=== PATIENT | male | born 1995 | race Caucasian/White ===

== ENCOUNTER 2018-03-14 09:58 | Day surgery (SDC) | payer OTHER ==
[2018-03-14] MEDS ORDERED: BUPIVACAINE 0.25% PF 30 ML VIAL ONE (10:53)
[2018-03-14] MEDS ORDERED: LACTATED RINGERS 1,000 ML IV ONE ×3 (10:54→14:09)
--- NOTE | 2018-03-14 11:10 | ANESTHESIA ---
Pre-Anesthesia VS, & Labs - Diagnosis Left wrist distal radius fracture - Procedure ORIF Left wrist distal radius fracture Vital Signs: Temp Pulse Resp BP Pulse Ox 37.2 C 70 16 126/77 99 03/14/18 10:38 03/14/18 10:38 03/14/18 10:38 03/14/18 10:38 03/14/18 10:38 Height 6 ft 3 in Weight (kg) 74.84 kg - NPO Last Fluid Intake: Water at 0900 Home Medications and Allergies Home Medications: Ambulatory Orders No Known Home Medications 03/12/18 No Known Home Medications 03/12/18 Allergies/Adverse Reactions: Allergies Allergy/AdvReac Type Severity Reaction Status Date / Time No Known Drug Allergies Allergy Verified 03/12/18 13:30 Anes History & Medical History - Anesthetic History Family history of Anesthesia Complications: Denies Family history of Malignant Hyperthermia: Denies - Medical History Cardiovascular: reports: None Pulmonary: reports: None Gastrointestinal: reports: None Urinary: reports: None Neuro: reports: None Musculoskeletal: reports: Other Endocrine/Autoimmune: reports: None Blood Disorders: reports: None Skin: reports: None Smoking Status: Light tobacco smoker (Uses vape pen) Psychosocial: reports: No issues indicated Exam General: Alert, Oriented x3, Cooperative, No acute distress Dental: WNL Mouth Openin Fingerbreadth Neck Mobility: Normal Mallampati classification: I Thyromental Distance: 4-6 cm Respiratory: Lungs clear, Normal breath sounds, No respiratory distress, No accessory muscle use Cardiovascular: Regular rate, Normal S1, Normal S2, No murmurs Cognitive Status: Within normal limits Plan Anesthesia Type: General Consent for Procedure(s) Verified and Reviewed: Yes Code Status: Attempt Resuscitation ASA classification: 1-Healthy patient Is this case an emergency?: No
[2018-03-14] MEDS ORDERED: ceFAZolin 2 GM/50 ML 2 GM/50 ML BAG IV ONE (11:41)
[2018-03-14] MEDS ORDERED: BUPIVACAINE 0.25% PF 30 ML VIAL SUBQ ONE (14:28)
[2018-03-14] MEDS ORDERED: fentaNYL 250 MCG/5 ML VIAL IVP ONE (16:08)
[2018-03-14] MEDS ORDERED: ONDANSETRON 4 MG/2 ML VIAL IVP ONE (16:08)
[2018-03-14] MEDS ORDERED: MIDAZOLAM 2 MG/2 ML VIAL IVP ONE (16:08)
[2018-03-14] MEDS ORDERED: KETOROLAC 30 MG/ML VIAL IVP ONE (16:08)
[2018-03-14] MEDS ORDERED: PROPOFOL 200 MG/20 ML VIAL IVP ONE (16:08)
[2018-03-14] MEDS ORDERED: oxyCODONE 5 MG TABLET PO PRN (16:12)
[2018-03-14] MEDS ORDERED: ONDANSETRON 4 MG/2 ML VIAL IVP PRN (16:12)
[2018-03-14] MEDS ORDERED: HYDROmorphone 1 MG/ML CARPUJECT ONE (16:47)
--- NOTE | 2018-03-14 16:47 | OPERATIVE REPORT ---
Operative Report - General Procedure Date: 03/14/18 Planned Procedure: Left distal radius fracture open reduction internal fixation Pre-Op Diagnosis: Left distal radius fracture Procedure Performed: Left distal radius fracture open reduction internal fixation Post Op Diagnosis: Left distal radius fracture - Procedure Note Primary Surgeon: GUCCI CRUZ Secondary Surgeon: MAGDY CEDENO Anesthesia Technique: General LMA Estimated Blood Loss (mL): 30 - Other Other Information/Narrative: Tourniquet Time: 98 minutes at 250mmHg. Implants: Arthrex left standard distal radius volar locking plate Arthrex 2.4 mm cortex screws x2 Arthrex 2.4 mm locking screws x3 Arthrex 3.5 mm cortex screws x2 Arthrex 3.5 mm locking screw x1 Specimen(s) Information: None Complication(s): None Condition: Stable to recovery Indications for Surgery: The patient is a 22-year-old Right hand dominant Male Who sustained a closed left extra-articular distal radius fracture on 31 August 2018 while snowboarding at [facility]. He was initially seen in ED was placed in a splint and then evaluated by orthopedics. Review of the imaging showed a left distal radius fracture with significant dorsal comminution and excessive dorsal tilt. We a long discussion in the clinic about the management options of this fracture ranging from closed reduction and casting to open reduction internal fixation, and the risks and potential benefits of each course of action. After discussion the patient wished to proceed with surgery for open reduction internal fixation of his left distal radius fracture with a goal of earlier mobilization and decreased wrist stiffness. Risks of surgery were discussed to include bleeding, infection, postoperative wrist stiffness, damage to nerves, vessels, tendons, ligaments, anesthesia complications to include medication side effects and allergic reactions, blood clot, stroke, heart attack and even . After a discussion, they wished to proceed. Findings: Left distal radius fracture Descriptions of Procedure: The patient was met in the Preoperative Holding Area, at which time preoperative paperwork was confirmed. The Left Fingers and splint were signed. The patient was then brought to Main Operating Room, placed supine on the Operating Room table, at which time pre procedure timeout was conducted. After this general anesthesia was induced. The operative extremity was then prepped and draped over a hand table in the normal sterile fashion after a well-padded tourniquet was placed on the proximal arm. A final timeout was conducted to confirm the correct patient, correct extremity and correct procedure and to confirm that antibiotics had been administered within 30 minutes of incision time. The operative extremity was then exsanguinated with an Esmarch bandage and tourniquet inflated to 250mmHg. An approximately 8 cm incision overlying the FCR tendon was made on the volar wrist, at the proximal wrist crease the incision was carried slightly radially to avoid crossing the wrist crease directly. The sheath of the FCR tendon was incised, and the FCR was retracted ulnarly and the floor of the FCR sheath was then incised exposing the pronator quadratus and FPL tendon and muscle belly. The FPL tendon was retracted ulnarly and the radial soft tissues were retracted radially exposing the pronator quadratus. The pronator quadratus was sharply incised from its insertion on the radial side of the radius and distally along the watershed line, it was then elevated using a yuan elevator to form a muscular flap that was anchored ulnarly and proximally. Once this had been accomplished, the brachioradialis was partially released from its insertion on the radial styloid. The fracture edges were now visible and cleaned using a combination of sharp and blunt dissection, a Richwood elevator was introduced into the fracture site to lever the fragments apart. A reduction maneuver was then performed, and the reduction was verified on fluoroscopy, satisfied with the reduction and K wire was driven through the radial styloid into the ulnar diaphyseal cortex for provisional reduction. A standard-sized Arthrex left distal radius plate was then introduced of the wound and positioned under fluoroscopic guidance. Once we were satisfied with the position on the AP imaging, the oblong hole was drilled and filled with a Cortical screw. The position of the plate was then examined laterally and found to be too distal with projection beyond the watershed line. The screw was loosened and the plate was translated proximally however there was not enough distance in the oblong hole and so a second more proximal hole was drilled and the oblong screw was replaced. Position of the plate was confirmed on biplanar fluoroscopy, and once satisfied the screw in the oblong hole was then tightened. We then turned our attention to the distal holes and placed a distal ulnar-sided and distal radial sided cortex screw to draw the plate to the bone, the position of the screws was confirmed on fluoroscopy. Satisfied with our position we then placed locking screws in the remaining 2 distal row holes as well as in 1 of the radial styloid holes. 2 additional cortex screws were placed into the radial shaft, the distal most screw was found to not have good purchase and was switched to a slightly shorter locking screw for a fixed angle construct. Final radiographs including AP, lateral, and 20 degree lateral view were obtaine d confirming good plate and screw position. A dorsal Horizon view of the distal radius under live fluoroscopy was used to verify that there is no dorsal screw prominence.The wound was then irrigated, and the pronator quadratus was Tacked back in place over the plate using interrupted 2-0 Vicryl sutures. The tourniquet was then let down, pressure was held for 5 minutes, no pulsatile bleeding was observed, there was some skin oozing as well as expected oozing from the fracture site and the cut edges of the pronator quadratus. The wound was then irrigated again, and the skin was closed using interrupted 2-0 Vicryl for deep dermal closure, followed by 3-0 nylon interrupted horizontal mattress stitches for skin. 10 cc of 0.25% plain Marcaine were injected in the alber- incisional soft tissues. The wound was dressed with Xeroform 4 x 4 gauze and Webril, and then a dorsal and volar plaster splint was applied, leaving the elbow free. The plaster is covered with Webril followed by an Onofre wrap. The patient was then awakened from general anesthesia without complication, brought to the Post Anesthesia Care for further recovery. Postoperative Plan: 1. The patient will be discharged from the Same Day Surgery Unit when discharge criteria are met. 2. The patient will remain in a the splint until follow-up. They can begin gentle finger range of motion on postoperative day #1 or #2 as pain allows. 3. Expect to start wrist ROM 1-2 weeks post-op. No strengthening for at least 4- 6 weeks postop.
[2018-03-14 17:32] VITALS: BP 137/80
== END 2018-03-14 09:59 | disposition home or self-care (01) ==
LOC: SDS 09:58
PROVIDERS: ATTEND Orthopaedic Surgery
PROC: 0PSJ04Z Reposition Left Radius with Internal Fixation Device, Open Approach (ICD-10-PCS; principal; 2018-03-14 12:00)
DX: S52.552A Other extraarticular fracture of lower end of left radius, initial encounter for closed fracture (principal); Y93.23 Activity, snow (alpine) (downhill) skiing, snowboarding, sledding, tobogganing and snow tubing; Y92.39 Other specified sports and athletic area as the place of occurrence of the external cause; Y99.8 Other external cause status; F17.290 Nicotine dependence, other tobacco product, uncomplicated
CPT/HCPCS: 25607; C1713; J0690; J1170; J3010; J7120

== ENCOUNTER 2018-03-16 00:15 | Emergency (ER) | payer OTHER ==
[2018-03-16 00:27] VITALS: BP 140/76
--- NOTE | 2018-03-16 00:55 | ED Physician Documentation ---
History of Present Illness - Stated complaint Stated Complaint: L WRIST PX - Chief complaint Chief Complaint: Ext Problem - History obtained from History obtained from: Patient - History of Present Illness Timing: Today Pain level max: 6 Pain level now: 5 - Additonal information Additional information: 22-year-old male is status post an open reduction internal fixation of a left distal radius fracture yesterday. States that his hand feels swollen and tight tonight. Has slight numbness. Feels that the entire hand is swollen and warm. Nothing makes it better or worse Review of Systems Constitutional: denies: Fever, Chills Throat: denies: Sore throat Respiratory: denies: Cough GI: denies: Vomiting, Diarrhea Skin: denies: Rash Musculoskeletal: denies: Neck pain, Back pain Neurologic: denies: Headache PD PAST MEDICAL HISTORY - Past Medical History Past Medical History: Yes Cardiovascular: None Respiratory: None Neuro: None Endocrine/Autoimmune: None GI: None : None HEENT: None Psych: None Musculoskeletal: Other Derm: None - Past Surgical History Past Surgical History: Yes Ortho: Other - Present Medications Home Medications: Ambulatory Orders Medication Instructions Recorded Confirmed No Known Home Medications 03/12/18 03/14/18 - Allergies Allergies/Adverse Reactions: Allergies Allergy/AdvReac Type Severity Reaction Status Date / Time No Known Drug Allergies Allergy Verified 03/16/18 00:27 - Social History Does the pt smoke?: Yes Smoking Status: Current every day smoker Does the pt drink ETOH?: No Does the pt have substance abuse?: No - Immunizations Immunizations are current?: Yes - POLST Patient has POLST: No PD ED PE NORMAL - Vitals Vital signs reviewed: Yes - General General: Alert and oriented X 3, No acute distress - Derm Derm: Warm and dry - Extremities Extremities: Other (L arm in a splint - The splint was removed and the incision is clean dry and intact. Symptoms resolved with removal of the splint.) - Neuro Neuro: Alert and oriented X 3 Results - Vitals Vitals: Vital Signs - 24 hr 03/16/18 00:22 Temperature 36.6 C Heart Rate 80 Respiratory 17 Rate Blood Pressure 140/76 H O2 Saturation 100 Oxygen O2 Source Room air Procedures - Splint (location) L forearm Splint applied by: Physician, Tech Type of splint: Fiberglass, Short arm, Volar cock up (volar and dorsal) Other: Patient tolerated well, No complications, Neurovascular intact, Sling provided PD MEDICAL DECISION MAKING - ED course Complexity details: considered differential, d/w patient ED course: Splint was removed, symptoms resolved. Appears secondary to swelling. The patient was then resplinted. We will have him follow-up with orthopedics for further care. Neurovascular intact. No evidence of compartment syndrome or infection. Patient counseled regarding signs and symptoms for which I believe and urgent re-evaluation would be necessary. Patient with good understanding of and agreement to plan and is comfortable going home at this time This document was made in part using voice recognition software. While efforts are made to proofread this document, sound alike and grammatical errors may occur. Departure - Departure Disposition: 01 Home, Self Care Clinical Impression: Post-operative pain Condition: Good Instructions: ED Post Op Pain Follow-Up: Aroldo Hewitt MD [Provider Admit Priv/Credential] - Within 3 Days Comments: Your splint was changed tonight. Return if you worsen. Follow-up with your doctor for further care. The incisions do not appear infected at this time
== END 2018-03-16 01:08 | disposition home or self-care (01) ==
LOC: ED 00:15
DX: G89.18 Other acute postprocedural pain (principal); F17.200 Nicotine dependence, unspecified, uncomplicated
CPT/HCPCS: 29125; 99282; 99283